=== PATIENT | male | born 1975 | race Caucasian/White ===

== ENCOUNTER 2021-04-26 14:13 | Emergency (ER) | payer BC, OTHER ==
[2021-04-26 14:28] VITALS: BP 137/83; PULSE 54
[2021-04-26] MEDS ORDERED: Silver Nitrate Applicator Each TOP ONE (14:50)
[2021-04-26] MEDS ORDERED: Bacitracin Oint 1 GM U/D Packet TOP ONE (14:53)
--- NOTE | 2021-04-26 15:06 | EDM.PDOC ---
Scribed by Ying Lin 04/26/21 [id number] for Israel Rhodes MD ED HPI GENERAL MEDICAL PROBLEM - General Chief Complaint: ENT Problem Stated Complaint: CONSTANT BLODDY NOSE Time Seen by Provider: 04/26/21 14:30 Source of Information: Reports: Patient, RN, RN Notes Reviewed History Limitations: Reports: No Limitations - History of Present Illness INITIAL COMMENTS - FREE TEXT/NARRATIVE: Patient presents to ED by POV with a history of 2 weeks of daily nosebleeds, but had four today. No active bleeding at this time. Sometimes has trouble getting them stopped. No blows to head. No known allergies. Has used Afrin spray with some success. No blood thinners or aspirin. Onset: Today Duration: Waxing/Waning Location: Reports: Other (nose) Severity: Mild Improves with: Reports: None Worsens with: Reports: None Associated Symptoms: Reports: No Other Symptoms - Related Data Allergies Allergy/AdvReac Type Severity Reaction Status Date / Time No Known Allergies Allergy Verified 04/26/21 14:28 Home Meds: Home Meds Naproxen Sodium [Aleve] 220 mg PO DAILY PRN 04/26/21 [History] lisinopriL [Lisinopril] 30 mg PO DAILY 04/26/21 [History] ED ROS ENT - Review of Systems Review Of Systems: Comprehensive ROS is negative, except as noted in HPI. ED EXAM, ENT - Physical Exam Exam: See Below Exam Limited By: No Limitations General Appearance: Alert, WD/WN, No Apparent Distress Nose: Dried Blood, Other (Right nares with evidence of recent bleeding and friable tiny vessels at the distal septum) Mouth/Throat: Normal Inspection Head: Atraumatic, Normocephalic Neck: Normal Inspection Respiratory/Chest: No Respiratory Distress Cardiovascular: Regular Rate, Rhythm Extremities: Normal Inspection Neurological: Alert, Oriented Psychiatric: Normal Mood Skin: Warm, Dry, Intact, Normal Color, No Rash ED ENT PROCEDURES - Epistaxis Procedure Indication: Epistaxis Recent anticoagulants/antiplatlets: Yes Uncontrolled HTN: No Recent septal/nasal surgery: No Site of bleeding: Right Nare Chemical cautery: Silver Nitrate Topical Post cautery: Antibiotic Ointment Complications: No Course - Vital Signs Last Recorded V/S: Last Vital Signs Temp 97.4 F 04/26/21 14:22 Pulse 54 L 04/26/21 14:22 Resp 18 04/26/21 14:22 BP 137/83 04/26/21 14:22 Pulse Ox 99 04/26/21 14:22 - Orders/Labs/Meds Meds: Medications Discontinued Medications Generic Name Dose Route Start Last Admin Trade Name Jm PRN Reason Stop Dose Admin Bacitracin 1 dose 04/26/21 14:53 Bacitracin Oint 1 Gm U/D Packet TOP 04/26/21 14:54 ONETIME ONE Silver Nitrate 3 each 04/26/21 14:50 Silver Nitrate Applicator Each TOP 04/26/21 14:51 ONETIME ONE Departure - Departure Time of Disposition: 15:30 Disposition: Home, Self-Care 01 Condition: Good Clinical Impression: Epistaxis - Discharge Information *PRESCRIPTION DRUG MONITORING PROGRAM REVIEWED*: Not Applicable *COPY OF PRESCRIPTION DRUG MONITORING REPORT IN PATIENT IGOR: Not Applicable Instructions: Nosebleed, Adult Forms: ED Department Discharge Additional Instructions: Do not wipe, rub, pick, or blow your nose to help prevent further bleeding after the cauterization. If bleeding recurs use 2 large sprays of Afrin in both nostrils and pinch firm pressure on nose for 30 minutes. Follow up in clinic for referral to Ear/Nose/Throat specialist if needed. Sepsis Event Note (ED) - Focused Exam Vital Signs: Vital Signs Temp Pulse Resp BP Pulse Ox 04/26/21 14:22 97.4 F 54 L 18 137/83 99 I have read and agree with the documentation that has been completed regarding this visit. By signing this record, I attest that the documentation was completed in my physical presence and is an accurate record of the encounter.
== END 2021-04-26 15:15 | disposition home or self-care (01) ==
LOC: DL.ED 14:13
DX: R04.0 Epistaxis (principal)
CPT/HCPCS: 30901; 99283-25

== ENCOUNTER 2021-07-11 10:36 | Emergency (ER) | payer OTHER ==
[2021-07-11] MEDS ORDERED: methylPREDNISolone Sodium Succinate 125 MG/2 ML SDV IM ONE (11:13)
[2021-07-11 11:14] VITALS: BP 148/95; PULSE 58
--- NOTE | 2021-07-11 11:26 | EDM.PDOC ---
ED HPI GENERAL MEDICAL PROBLEM - General Stated Complaint: PAIN IN LEFT FOOT Time Seen by Provider: 07/11/21 11:00 Source of Information: Reports: Patient History Limitations: Reports: No Limitations - History of Present Illness INITIAL COMMENTS - FREE TEXT/NARRATIVE: 46 y/o M c/o L foot pain at the anterior heel and anterior mid foot. He reports 2 weeks ago his R foot became reddened and inflamed on the anterior portion behind the 4 and the toes. He reports he has had extensive xrays and blood work by Done [facility] :[email or web address] [facility]. He has been evaluated for inflammatory processes like RA but nothing has been found so far. He reports hx of gout and is on allopurinol. He denies fever, chills, drugs, etoh, cp, db, adb pn, leg pn, arm pn, neck pn. Has had some lower back pn on the R side. Left Foot Pain Score (Numeric/FACES): 8 - Related Data Allergies Allergy/AdvReac Type Severity Reaction Status Date / Time No Known Allergies Allergy Verified 07/11/21 10:49 Home Meds: Home Meds lisinopriL [Lisinopril] 30 mg PO DAILY 04/26/21 [History] Past Medical History HEENT History: Reports: None Cardiovascular History: Reports: Hypertension Respiratory History: Reports: None Gastrointestinal History: Reports: None Genitourinary History: Reports: None Musculoskeletal History: Reports: Gout Neurological History: Reports: None Psychiatric History: Reports: None Endocrine/Metabolic History: Reports: None Hematologic History: Reports: None Immunologic History: Reports: None Oncologic (Cancer) History: Reports: None Dermatologic History: Reports: None - Infectious Disease History Infectious Disease History: Reports: None Social & Family History - Family History Family Medical History: No Pertinent Family History - Tobacco Use Tobacco Use Status *Q: Never Tobacco User - Caffeine Use Caffeine Use: Reports: Coffee - Alcohol Use Days Per Week of Alcohol Use: 1 Number of Drinks Per Day: 3 Total Drinks Per Week: 3 - Recreational Drug Use Recreational Drug Use: No Review of Systems - Review of Systems Review Of Systems: Comprehensive ROS is negative, except as noted in HPI. ED EXAM, GENERAL - Physical Exam Exam: See Below Exam Limited By: No Limitations General Appearance: Alert, WD/WN, No Apparent Distress Eye Exam: Bilateral Eye: PERRL Respiratory/Chest: No Respiratory Distress, Lungs Clear, Normal Breath Sounds, No Accessory Muscle Use, Chest Non-Tender Cardiovascular: Normal Peripheral Pulses, Regular Rate, Rhythm, No Edema, No Gallop, No JVD, No Murmur, No Rub (Male) Exam: Deferred Rectal (Males) Exam: Deferred Back Exam: Normal Inspection, Full Range of Motion, Vertebral Tenderness (tenderness left of L4-L5) Extremities: Normal Range of Motion, No Pedal Edema, Normal Capillary Refill, Other (Tenderness to anterior metatarsals 4-5 and posterior heel. CMSx4) Neurological: Alert, Oriented, CN II-XII Intact, Normal Cognition, Normal Gait, Normal Reflexes, No Motor/Sensory Deficits Psychiatric: Normal Affect, Normal Mood Skin Exam: Warm, Dry, Intact, Normal Color, No Rash Course - Vital Signs Last Recorded V/S: Last Vital Signs Temp 97.0 F 07/11/21 10:50 Pulse 58 L 07/11/21 10:50 Resp 18 07/11/21 10:50 BP 148/95 H 07/11/21 10:50 Pulse Ox 98 07/11/21 10:50 - Orders/Labs/Meds Meds: Medications Discontinued Medications Generic Name Dose Route Start Last Admin Trade Name Freq PRN Reason Stop Dose Admin Methylprednisolone Sodium Succinate 125 mg 07/11/21 11:13 07/11/21 11:19 Methylprednisolone Sodium Succinate 125 Mg/2 Ml Sdv IM 07/11/21 11:14 125 mg ONETIME ONE Administration - Re-Assessments/Exams Free Text/Narrative Re-Assessment/Exam: 07/11/21 11:33 I talked with the pt at length. He does not want any more xrays on his feet as he believes they will not help identify any cause of his pain. He states his uric acid last week was normal and does not beleive he is experiencing a gout flare. I informed pt about alternative therapies for inflammation specifically Turmeric and instructed im to research turmeric and see if it may be useful for him. Departure - Departure Time of Disposition: 11:14 Disposition: Home, Self-Care 01 Condition: Good Clinical Impression: Foot pain Qualifiers: Laterality: left Qualified Code(s): M79.672 - Pain in left foot - Discharge Information *PRESCRIPTION DRUG MONITORING PROGRAM REVIEWED*: Not Applicable *COPY OF PRESCRIPTION DRUG MONITORING REPORT IN PATIENT IGOR: Not Applicable Instructions: Foot Pain Forms: ED Department Discharge Additional Instructions: RX: Prednisone Follow up with your primary care facility next week if there is no improvement. Sepsis Event Note (ED) - Evaluation Sepsis Screening Result: No Definite Risk - Focused Exam Vital Signs: Vital Signs Temp Pulse Resp BP Pulse Ox 07/11/21 10:50 97.0 F 58 L 18 148/95 H 98
== END 2021-07-11 11:24 | disposition home or self-care (01) ==
LOC: DL.ED 10:36
DX: M79.672 Pain in left foot (principal); I10 Essential (primary) hypertension; Z79.899 Other long term (current) drug therapy
CPT/HCPCS: 96372; 99283; J2930

== ENCOUNTER 2022-12-27 12:06 | Emergency (ER) | payer OTHER ==
[2022-12-27 12:22] VITALS: BP 126/89; PULSE 94
[2022-12-27] MEDS ORDERED: cefTRIAXone 2 GM Vial IVPUSH ONE (13:06)
[2022-12-27] MEDS ORDERED: Sodium Chloride 0.9% 10 ML Syringe FLUSH PRN (13:06)
[2022-12-27] MEDS ORDERED: Sodium Chloride 0.9% 1,000 ML IV ONE (13:06)
[2022-12-27 13:52] LABS: ANION GAP 15.3 mEq/L (7-13)
== END 2022-12-27 14:16 | disposition home or self-care (01) ==
LOC: DL.ED 12:06
DX: N12 Tubulo-interstitial nephritis, not specified as acute or chronic (principal); N17.9 Acute kidney failure, unspecified; R80.9 Proteinuria, unspecified; I10 Essential (primary) hypertension; E86.0 Dehydration; Z79.899 Other long term (current) drug therapy
CPT/HCPCS: 36415; 74176; 80053; 81001; 85025; 87086; 87088; 87186; 96374; 99284; J0696; J7030; J3490

== ENCOUNTER 2023-09-09 17:36 | Emergency (ER) | payer OTHER ==
[2023-09-09 17:54] VITALS: BP 160/112; PULSE 70
[2023-09-09 18:07] LABS: BASOPHILS PERCENT AUTO 0.4 % (0.0-1.0); EOSINOPHILS PERCENT AUTO 4.8 % (1.0-3.0); HEMATOCRIT 45.7 % (40.0-54.0); HEMOGLOBIN 15.4 g/dL (14.0-18.0); LYMPHOCYTES PERCENT AUTO 27.8 % (20.5-50.1); MEAN CORPUSCULAR HEMOGLOBIN 30.6 pg (27.0-34.0); MEAN CORPUSCULAR HGB CONC 33.7 g/dL (33.0-35.0); MEAN CORPUSCULAR VOLUME 90.9 fL (80-100); MONOCYTES PERCENT AUTO 12.4 % (2-8); NEUTROPHILS PERCENT AUTO 54.6 % (42.2-75.2); PLATELET COUNT,PLT 286 10^3/uL (150-450); RED BLOOD CELL COUNT 5.03 10^6/uL (4.6-6.2); WHITE BLOOD CELL COUNT,WBC 6.9 10^3/uL (5.0-10.0)
[2023-09-09] MEDS ORDERED: diphenhydrAMINE/Zinc Acetate 2% Crm 28.4 GM Tube TOP ONE (18:21)
[2023-09-09] MEDS ORDERED: Lidocaine 2% Viscous Solution 15 ML UD PO ONE (18:29)
[2023-09-09] MEDS ORDERED: Dexamethasone 4 MG/ML SDV IM ONE (18:43)
== END 2023-09-09 18:53 | disposition home or self-care (01) ==
LOC: DL.ED 17:36
DX: T78.40XA Allergy, unspecified, initial encounter (principal); I10 Essential (primary) hypertension; Z79.899 Other long term (current) drug therapy
CPT/HCPCS: 36415; 85025; 87220; 96372; 99283; A9270; J1100

== ENCOUNTER 2024-04-09 06:20 | Day surgery (SDC) | payer OTHER ==
[~2024-04-09 06:20] MED LIST: Midazolam 1 MG/ML 2 ML SDV ONE; fentaNYL 100 MCG/2 ML SDV ONE
[2024-04-09] MEDS ORDERED: Midazolam 1 MG/ML 2 ML SDV IV ONE (06:21)
[2024-04-09] MEDS ORDERED: fentaNYL 100 MCG/2 ML SDV IV ONE (06:21)
[2024-04-09] MEDS: Dextrose 5%-0.45% NaCl 1,000 ML IV SCH (06:55)
[2024-04-09] MEDS: fentaNYL 100 MCG/2 ML SDV IV ONE ×2 (08:04→08:05)
[2024-04-09] MEDS: Midazolam 1 MG/ML 2 ML SDV IV ONE ×3 (08:05→08:15)
[2024-04-09 10:13] VITALS: BP 124/88; PULSE 50
== END 2024-04-09 09:53 | disposition home or self-care (01) ==
LOC: DL.ENDO 06:20
PROVIDERS: ATTEND Internal Medicine Gastroenterology
DX: Z12.11 Encounter for screening for malignant neoplasm of colon (principal); D12.5 Benign neoplasm of sigmoid colon; I10 Essential (primary) hypertension; E66.9 Obesity, unspecified; Z68.38 Body mass index [BMI] 38.0-38.9, adult
CPT/HCPCS: 45385; J2250; J3010; J7799